=== PATIENT | female | born 2005 | race Caucasian/White ===

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

== ENCOUNTER 2024-02-01 15:14 | Outpatient (CLI) | payer OTHER, SELFPAY ==
[2024-02-01 15:53] LABS: Basophils % 0.7 % (0.1-2.0); Eosinophils # 0.1 K/mm3 (0.0-0.4); Eosinophils % 1.5 % (0.1-12.0); Hematocrit 33.1 % (37.0-47.0); Hemoglobin 10.4 g/dL (12.2-16.2); Lymphocytes # 1.9 K/mm3 (0.7-4.5); Lymphocytes % 40.5 % (10-50); Mean Corpuscular HGB Conc 31.3 g/dL (31.8-35.4); Mean Corpuscular Hemoglobin 26.7 pg (27.0-31.2); Mean Corpuscular Volume 85.3 fl (81-99); Mean Platelet Volume 9.6 fl (7.4-10.4); Monocytes # 0.3 K/mm3 (0.1-1.0); Monocytes % 5.2 % (1.7-9.3); Neutrophils # 2.5 K/mm3 (1.8-7.8); Neutrophils % 52.1 % (37.0-80.0); Platelet Count 280 K/mm3 (142-424); Red Blood Count 3.88 M/mm3 (4.20-5.40); Red Cell Distribution Width 15.9 % (11.5-17.5); White Blood Count 4.8 K/mm3 (4.5-13.0)
== END 2024-02-01 23:59 | disposition home or self-care (01) ==
LOC: LAB 15:14
PROVIDERS: PCP Internal Medicine; Visit Provider Obstetrics & Gynecology
DX: N92.0 Excessive and frequent menstruation with regular cycle (principal); N93.9 Abnormal uterine and vaginal bleeding, unspecified; Z98.891 History of uterine scar from previous surgery
CPT/HCPCS: 36415; 85025

== ENCOUNTER 2024-04-11 15:43 | Outpatient (CLI) | payer OTHER, SELFPAY | END 2024-04-11 23:59 | disposition home or self-care (01) | LOC: RT 15:44 | PROVIDERS: PCP Nurse Practitioner Family; Visit Provider Nurse Practitioner Family | DX: R07.9 Chest pain, unspecified (principal) | CPT/HCPCS: 93225; 93227 ==

== ENCOUNTER 2024-07-06 23:58 | Emergency (ER) | payer OTHER, SELFPAY ==
[2024-07-06 23:59] VITALS: BP 135/93; PULSE 103; RESP 18; TEMP 36.6; O2SAT 99; BMI 19.4
--- NOTE | 2024-07-07 00:20 | ECG_ITS ---
APPROVED REPORT Exam: Resting ECG HR:133 bpm ECG Measurements Heart Rate [address] 136 P 75 QRSd 77 QRS 90 QT 332 T 35 QTc 410 Conclusion SINUS TACHYCARDIA NONSPECIFIC T-WAVE ABNORMALITY ABNORMAL RHYTHM ECG UNCONFIRMED REPORT Electronically signed by : TELLY ROBERSON, 07/08/2024 06:38:02
[2024-07-07 00:24] LABS: Basophils # 0.1 K/mm3 (0-0.2); Eosinophils # 0.1 K/mm3 (0.0-0.4); Eosinophils % 1.9 % (0.1-12.0); Lymphocytes # 2.7 K/mm3 (0.7-4.5); Lymphocytes % 40.5 % (10-50); Mean Corpuscular HGB Conc 33.5 g/dL (31.8-35.4); Mean Corpuscular Hemoglobin 27.9 pg (27.0-31.2); Mean Corpuscular Volume 83.3 fl (81-99); Mean Platelet Volume 9.8 fl (7.4-10.4); Monocytes # 0.4 K/mm3 (0.1-1.0); Monocytes % 6.4 % (1.7-9.3); Neutrophils # 3.4 K/mm3 (1.8-7.8); Neutrophils % 50.1 % (37.0-80.0); Platelet Count 241 K/mm3 (142-424); Red Blood Count 4.68 M/mm3 (4.20-5.40); Red Cell Distribution Width 14.6 % (11.5-17.5); White Blood Count 6.7 K/mm3 (4.5-13.0)
[2024-07-07 00:32] VITALS: PULSE 105; O2SAT 99
[2024-07-07 00:37] LABS: Alanine Aminotransferase 58 U/L (12-78); Albumin Level 4.9 g/dl (3.5-5.0); Alkaline Phosphatase 87 U/L (38-126); Aspartate Amino Transferase 54 U/L (14-36); Bilirubin,Total 0.4 mg/dl (0.2-1.3); Blood Urea Nitrogen 16 mg/dl (7-17); Calcium 9.9 mg/dl (8.4-10.2); Carbon Dioxide 25 mmol/L (22.0-30.0); Chloride 108 mmol/L (98-107); Creatinine Clearance Estimated 110 mL/min (50-200); Estimated Glomerular Filt Rate 127 ml/min (>60); GFR (African American) 154 ML/MIN (>60); Globulin 2.4 g/dL (1.3-3.2); Glucose 70 mg/dl (74-100); Sodium 143 mmol/L (136-145); Total Protein,Serum 7.3 g/dl (6.3-8.2)
[2024-07-07 00:39] VITALS: PULSE 130
[2024-07-07 00:39] LABS: D-Dimer 0.25 ug/mL (0.0-0.5)
[2024-07-07 00:40] LABS: Troponin I < 0.01 ng/ml (0.00-0.034)
[2024-07-07 00:47] LABS: HCG,Quantitative < 2 mIU/ml (0-5.42)
[2024-07-07 01:03] LABS: HCG Qualitative, Serum Negative (Negative)
[2024-07-07] MEDS: LACTATED RINGERS 1000ML 1,000 ML 999 ML IV (01:06)
[2024-07-07 01:36] VITALS: BP 102/67; PULSE 103; RESP 17; TEMP 36.9; O2SAT 100
[2024-07-07 02:22] LABS: HIV (1&2) Antibody Rapid NONREACTIVE (NONREACTIVE)
--- NOTE | 2024-07-07 03:00 | [facility].EDCP ---
Discharge Plan Disposition Patient Disposition: Home, Self-Care Condition: Good Prescriptions Prescriptions: No Action medroxyprogesterone 150 mg/mL suspension 150 mg IM [id number] Qty: 1 3RF spinosad [Natroba] 0.9 % suspension 120 ml topical Q7D Qty: 120 0RF Referrals Follow up/Referrals: Andrey Fleming APRN [Primary Care Provider] - See instructions Pravin Fields MD [Staff Physician] - See instructions (arrhythmia, palpitations, cp) Activity Restrictions/Add. Instructions Additional Instructions/Restrictions: You were evaluated in the ER and are appropriate for discharge at this time. Drink plenty of water, aim for 100 ounces of water daily. Make an appointment with cardiology again to follow-up. I did refer you to our clinical education academic coordinator as well. Make an appointment with your primary care doctor for reevaluation in 2 to 3 days return to the ER with new, worsening, or otherwise concerning symptoms Clinical Impressions Clinical Impression: Palpitation, Chest pain Print Language Print Language: Romanian Discharge ED Provider: Erwin Marquez General Chief Complaint: Chest Pain Stated Complaint: Chest Pain Time Seen by Provider: 07/07/24 00:01 Mode of Arrival: Ambulatory Source of Information: Patient Limitations: No Limitations Description of Symptoms (Recalled from ER Triage Doc. by RN): Patient complains of chest pain since 07/05/24 at 6 pm. States it started in her left chest and arm and has now moved to the right arm. States chest pain is an ongoing issue for her. History of Present Illness HPI narrative: 19-year-old female presents to the ER for complaints of over 24 hours of chest pain radiating to her left chest and arm, now moving to the right side of the chest. Patient reports feeling her heart is going fast as well. She states she has previously had a case monitor but never followed up for the echo. She reports a few days ago she had a fever but has not had 1 in the last few days. She denies cough or congestion, no nausea vomiting or diarrhea, ROS otherwise negative. Related Data Previous Rx's ?Medication ?Instructions ?Recorded medroxyprogesterone 150 mg/mL 150 mg IM [id number] #1 mL 02/01/24 intramuscular suspension spinosad 0.9 % topical suspension 120 ml topical Q7D 2 doses #120 mL 05/06/24 (Natroba) Allergies Allergy/AdvReac Type Severity Reaction Status Date / Time No Known Allergies Allergy Verified 05/02/24 15:15 [facility] Disclaimer: The information contained in this section may have been updated after the patient was seen, as this information can be updated by other users. Medical History with 37 weeks completed gestation Vaginal discharge during , antepartum Constipation during , antepartum Abdominal pain during in first trimester Gastroesophageal reflux disease Migraine Nausea and vomiting Surgical History History of delivery Family History Other Asthma Cancer Diabetes Heart attack Hypertension No significant family history Stroke Social History Smoking Status: Current every day smoker tobacco type: e-cigarettes alcohol intake: never substance use type: denies use current occupational status: unemployed Travel in the last 8 weeks: None adopted: No caregiver/support person: No foster care: No household members: family housing: house lives independently: Yes marital status: single education level: high school service: No retirement: No current occupational exposures/hazards: No pets and animals: No sexually active: Yes how many partners: 1 are you practicing safe sex: Yes well-balanced diet: about half the time caffeine: Yes high-fat food intake: 2 times daily daily servings fruits/ve-1 daily servings of milk/calcium: 0-1 eating out: 1-3 times/week reads food labels: seldom or never during the past year weight has: increased > 10 lbs physical activity: walking frequency: 1-2 times per week duration: < 15 minutes/day special harry needs: No agree to transfusion: Yes helmet use: No drive intox or ride w/ intox petrol tanker driver: No water heater temp set < 120 deg: Yes working smoke detector in home: Yes fire extinguisher in home: Yes carbon monox detector in home: Yes firearms in home: No do you feel safe at home: Yes victim of physical abuse: No victim of emotional abuse: No victim of sexual abuse: No would you like helpful sources: No Other Medical History Have you received the Flu Vaccine for this season: No Have you received the Pneumonia Vaccine: No ROS Obtained: Yes All systems reviewed & no additional complaints except as documented Constitutional Constitutional: Denies chills, Denies fever(s), Denies headache(s) and Denies weakness Eyes Eyes: Denies change in vision ENT Ears, Nose, Mouth, and Throat: Reports dizziness (Described as lightheadedness intermittently), Denies headache(s), Denies nasal congestion and Denies sore throat Cardiovascular Cardiovascular: Reports chest pain, Denies dyspnea and Denies leg edema Respiratory Respiratory: Denies cough and Denies dyspnea Gastrointestinal Gastrointestingal: Denies constipation, diarrhea, nausea or vomiting Genitourinary Female Genitourinary: Denies dysuria Musculoskeletal Musculoskeletal: Denies arthralgias, Denies myalgias, Denies numbness and Denies tingling Integumentary/Breasts Skin/Breast: Denies change in pigmentation Neurologic Neurologic: Reports dizziness (Described as lightheadedness intermittently), Denies headache(s), Denies numbness, Denies tingling and Denies weakness Physical Exam General General appearance: alert and in no apparent distress Head Head exam: atraumatic and normocephalic Eye Eye exam: Present PERRL and EOMI ENT ENT exam: Present mucous membranes moist Neck Neck exam: Present normal inspection and full ROM Chest Chest inspection: Present symmetric chest wall rise; Absent tenderness Respiratory Respiratory exam: Present normal lung sounds bilaterally; Absent respiratory distress, wheezes or stridor Cardiovascular Cardiovascular exam: Present normal rhythm and tachycardia Abdominal Exam Abdominal exam: Present soft; Absent distention or tenderness Extremities Exam Extremities exam: Present full ROM; Absent edema Neurological Exam Neurological exam: Present alert and oriented X3; Absent motor sensory deficit Psychiatric Psychiatric exam: Present normal affect and normal mood Skin Skin exam: Present warm and dry HEART Score HEART Score HEART Score assessment performed?: Yes History (anamnesis): Slightly suspicious ECG: Non-specific disturbance Age: <45 years Risk factors: No known risk factors Troponin: </= normal limit HEART Score: 1 Critical Care Critical Care Time Critical Care Time: No Medical Decision Making Medical Records MR Comment: Records were reviewed. Patient has never seen cardiology in our system. Patient was seen by Andrey Fleming for an office visit with chest pain in April 2024. She describes symptoms similar to those she has today in the encounter. His note demonstrates a past Holter monitor within normal limits. Plan at that time was for a Holter, echo, cardiology referral. [place] Inquiry Pt receiving controlled substance: No Vital Signs Vital Signs: 07/06/24 23:59 07/07/24 00:32 07/07/24 00:39 Temperature 97.8 F Temperature Source Oral Pulse Rate 105 H 130 H Pulse Rate [Right Radial] 103 H Respiratory Rate 18 Blood Pressure Blood Pressure [Right Arm] 135/93 H Blood Pressure Mean [Right Arm] 107 Blood Pressure Source Blood Pressure Source [Right Arm] Automatic Cuff Blood Pressure Position 02 Sat by Pulse Oximetry 99 99 Oxygen Delivery Method Room Air 07/07/24 01:36 Temperature 98.4 F Temperature Source Oral Pulse Rate 103 H Pulse Rate [Right Radial] Respiratory Rate 17 Blood Pressure 102/67 L Blood Pressure [Right Arm] Blood Pressure Mean [Right Arm] Blood Pressure Source Automatic Cuff Blood Pressure Source [Right Arm] Blood Pressure Position Sitting 02 Sat by Pulse Oximetry Oxygen Delivery Method Room Air Lab Data Labs: Lab Results 07/07/24 00:08: WBC 6.7, RBC 4.68, Hgb 13.0, Hct 39.0, MCV 83.3, MCH 27.9, MCHC 33.5, RDW 14.6, Plt Count 241, MPV 9.8, Neut % (Auto) 50.1, Lymph % (Auto) 40.5, Coos % (Auto) 6.4, Eos % (Auto) 1.9, Baso % (Auto) 1.0, Neut # (Auto) 3.4, Lymph # (Auto) 2.7, Coos # (Auto) 0.4, Eos # (Auto) 0.1, Baso # (Auto) 0.1, D-Dimer 0.25, Sodium 143, Potassium 4.0, Chloride 108 H, Carbon Dioxide 25, Anion Gap 14.0, BUN 16, Creatinine 0.60, Estimated Creat Clear 110, Estimated GFR 127, Est GFR ( Amer) 154, Glucose 70 L, Calcium 9.9, Total Bilirubin 0.4, AST 54 H, ALT 58, Alkaline Phosphatase 87, Troponin I < 0.01, Total Protein 7.3, Albumin 4.9, Globulin 2.4, Albumin/Globulin Ratio 2.0 H, HCG, Quant < 2, HIV 1&2 Antibody Rapid Nonreactive 07/07/24 : Serum HCG, Qual Negative 07/07/24 00:08 07/07/24 00:08 Response Orders (Tests/Meds): ED MEDICATIONS Discontinued Medications Generic Name Dose Route Start Last Admin Trade Name Lukas PRN Reason Stop Dose Admin Lactated Ringer's 1,000 mls @ 999 mls/hr 07/07/24 00:54 07/07/24 01:06 Lactated Ringer's 1000 Ml Bag IV 07/07/24 01:54 999 mls/hr .Q1H1M ONE Administration ORDERS Category Date Time Status Complete Blood Count Auto Diff Stat Lab 07/07/24 00:08 Completed Comprehensive Metabolic Panel Stat Lab 07/07/24 00:08 Completed D-Dimer Stat Lab 07/07/24 00:08 Completed HCG Qualitative, Serum Stat Lab 07/07/24 Completed HCG,Quantitative Stat Lab 07/07/24 00:08 Completed HIV (1&2) Antibody Rapid Stat Lab 07/07/24 00:08 Completed Hep C Ab with Reflex to RNA Stat Lab 07/07/24 00:08 Received Troponin I Stat Lab 07/07/24 00:08 Completed 12-lead EKG Request [ECG Request] Stat Y 07/07/24 00:20 Ordered MDM Narrative Medical Decision Narrative: In summary, this 19-year-old female with no known chronic medical conditions presents to the emergency department today with palpitation, chest pain. On initial evaluation patient is tachycardic but otherwise hemodynamically stable, afebrile, symptoms have been going on for more than 24 hours, physical exam aside from tachycardia is overall benign. Differential diagnosis includes but is not limited to ACS, PE, electrolyte abnormality, arrhythmia, dehydration, anxiety, . Based on these concerns, I ordered serum labs, cardiac workup. ECG personally interpreted demonstrates sinus tachycardia, rate 133, normal axis, normal TX and QTc, no STEMI. Patient received IV fluids for treatment. On reassessment, her heart rate has significantly improved. She was no longer tachycardic, heart rate in the 90s Labs personally reviewed demonstrate no leukocytosis or anemia, CBC is normal, D-dimer negative at 0.25, no further PE workup indicated at this time, CMP nonactionable, initial troponin undetectably low at less than 0.01, given patient's duration of symptoms this is significantly reassuring and serial troponins are not indicated. test negative. Chest x-ray personally interpreted does not demonstrate any acute intrathoracic abnormality, see radiology read for final interpretation. On reassessment patient continues to be stable and all symptoms are resolved. She is resting comfortably. I referred her to cardiology for outpatient follow-up. Patient was given instructions on symptomatic management, follow up instructions, and return precautions for the emergency department. Patient indicated understanding and was discharged in stable condition.
[2024-07-09 05:10] LABS: HCV Ab Non Reactive (Non Reactive)
== END 2024-07-07 01:38 | disposition home or self-care (01) ==
PROVIDERS: Emergency Provider Emergency Medicine; PCP Nurse Practitioner Family
DX: R07.9 Chest pain, unspecified (principal); R00.2 Palpitations; M79.602 Pain in left arm; M79.601 Pain in right arm
CPT/HCPCS: 80053; 84484; 84702; 84703; 85025; 85378; 86803; 87389; 93005; 96360; 99283; J7120

== ENCOUNTER 2024-09-02 13:21 | Outpatient (CLI) | payer OTHER, SELFPAY ==
--- NOTE | 2024-09-02 | CA_ITS ---
APPROVED REPORT Exam: Exercise Treadmill Technologist: Rubina Harper Ht: 5 ft 2 in Wt: 104 lbs BSA: 1.45 m2 HR: 108 bpm BP: 133/74 mmHg Rhythm: NSR Stress Test Details HR Resting HR: 108 bpm Max Heart Rate (APMHR): 200 bpm Max HR Achieved: 179 bpm Target HR (85% APMHR): 170 bpm % of APMHR: 90 Recovery HR: 133 bpm HR response to stress: Normal HR response to stress BP Resting BP: 133.0/74.0 mmHg Max BP: 153.0/88.0 mmHg Recovery BP: 125.0/78.0 mmHg BP response to stress: Normal blood pressure response to stress. ECG Resting ECG: NSR Stress EC.[address] depression Arrhythmia: None Clinical Exercise duration: 7:00 min Highest Stage Achieved: III Exercise capacity: 8.9 METs Overall Exercise Capacity for Age: Average Stress ECG Conclusion Symptoms at peak stress: pleuritic chest pain, resolved within 3-5 minutes. Arrhythmias/Ectopy: occasional PVC ST-T Changes: 0.[address] depression CONCLUSION Fair exercise capacity. No ECG evidence of ischemia at peak stress. Electronically signed by : Whitley Fields MD 09/04/2024 11:10:34
--- NOTE | 2024-09-02 13:25 | CA_ITS ---
APPROVED REPORT EXAM: Comprehensive 2D, Doppler, and color-flow Echocardiogram Assembly Leader: Allie Humphreys RT(R) Ht: 5 ft 1 in Wt: 105lbs BSA: 1.44 BP: 102/78 mmHg Indications: SOA, CP 2D Dimensions Left Atrium 1.80 cm F: 2.7 - 3.8 LVEF (Reynaga's) 41.40 % F: 54 - 74 LVOT 1.88 cm (M/F) 1.5-2.5 LV Volume 82.20 mL F: 46 - 106 LV Volume Index 57.1 mL/m2 F: 29 - 61 EF AP4 46.40 % EF AP2 42.8 % EF BP 41.4 % GL Strain -17.3 % M-Mode Dimensions RVDd 1.66 cm (0.9-2.6) LVDd 3.84 cm (3.5-5.7) Ao Diam 2.48 cm (2.0-3.7) LVDs 2.90 cm (3.5-5.7) IVSd 0.48 cm (0.6-1.1) PWd 0.54 cm (0.6-1.1) EF (Teich) 49.30% FS 24.50% EDV (Teich) 63.50 mL ESV (Teich) 32.20 mL LV Diastology MED E' 11.6 (>= 7 cm/sec) LAT E' 18.3 (>= 10 cm/sec) Left Ventricle The left ventricle is normal size. The left ventricular systolic function is low normal. There is normal left ventricular wall thickness. There is normal LV segmental wall motion. The left ventricular diastolic function is normal. LVEF is 50%. Right Ventricle The right ventricle is normal size. The right ventricular systolic function is normal. Atria The left atrium size is normal. The right atrium size is normal. There is no Doppler evidence of interatrial shunt. Aortic Valve The aortic valve opens well. There is no aortic valvular stenosis. No aortic regurgitation is present. Mitral Valve The mitral valve is normal in structure. No evidence of mitral valve stenosis. Trace mitral regurgitation. Tricuspid Valve Tricuspid valve is grossly normal in structure and function. Trace tricuspid regurgitation. There is insufficient TR jet to estimate RVSP. Pulmonic Valve The pulmonary valve is normal in structure. Trace pulmonic regurgitation. Great Vessels The aortic root is normal in size. The ascending aorta is normal in size. IVC is normal in size and collapses >50% with inspiration. Pericardium There is no pericardial effusion. Other Information Study Quality: Fair Conclusion Low normal LV systolic function (LVEF 50%). No significant valvular stenosis or regurgitation. Electronically signed by : Whitley Fields MD 09/16/2024 18:58:26
== END 2024-09-02 23:59 | disposition home or self-care (01) ==
LOC: RT 13:22
PROVIDERS: PCP Nurse Practitioner Family; Visit Provider Physician Assistant
DX: R94.31 Abnormal electrocardiogram [ECG] [EKG] (principal); R07.89 Other chest pain; R00.0 Tachycardia, unspecified; R06.02 Shortness of breath
CPT/HCPCS: 93017; 93018; 93306

== ENCOUNTER 2024-09-06 11:39 | Emergency (ER) | payer OTHER, SELFPAY ==
[2024-09-06 11:50] VITALS: BP 0/0; PULSE 0; RESP 0; TEMP -17.7; TEMP 0
== END 2024-09-06 11:51 | disposition left against medical advice (07) ==
LOC: UTC 11:41
PROVIDERS: Emergency Provider Nurse Practitioner; PCP Nurse Practitioner Family
DX: Z53.21 Procedure and treatment not carried out due to patient leaving prior to being seen by health care provider (principal)

== ENCOUNTER 2024-10-05 02:52 | Emergency (ER) | payer OTHER, SELFPAY ==
[2024-10-05 02:54] VITALS: BP 119/80; PULSE 114; RESP 20; TEMP 36.7; O2SAT 100; BMI 19.8
--- NOTE | 2024-10-05 03:12 | HMH.EDGENADL ---
Discharge Plan Disposition Patient Disposition: Home, Self-Care Condition: Good Prescriptions Prescriptions: New amoxicillin-pot clavulanate 875-125 mg tablet 1 tab PO BID Qty: 20 0RF No Action medroxyprogesterone 150 mg/mL suspension 150 mg IM [id number] Qty: 1 3RF Referrals Follow up/Referrals: Andrey Fleming APRN [Primary Care Provider] - See instructions Activity Restrictions/Add. Instructions Additional Instructions/Restrictions: You were evaluated in the ER and are appropriate for discharge at this time. Take the prescribed antibiotics as directed, do not skip doses do not stop taking them early. Take Tylenol, ibuprofen if needed for pain but do not exceed the recommended dose on the bottle. Drink water and eat a small snack each time you take these medications. Use the provided dental balls, 1 hour on, 1 hour off. Do not eat or sleep with these in place. Follow-up with your dentist as scheduled this week. Return to the ER with new, worsening, or otherwise concerning symptoms. Clinical Impressions Clinical Impression: Dental caries, Pain, dental, Gingivitis, Sore throat Print Language Print Language: Swazi Discharge ED Provider: Erwin Marquez General Adult HPI General Chief complaint: Dental/Oral Stated complaint: pain L side mouth, throat Time Seen by Provider: 10/05/24 03:02 Mode of Arrival: Ambulatory Source of Information: Patient Limitations: No Limitations Description of Symptoms (Recalled from ER Triage Doc. by RN): pt reports left sided mouth pain that radiates into her left ear as well as a sore throat. pt reports she began expierencing this a couple of months ago and made a dentist appt for next week but the pain became unbearable at 11pm History of Present Illness HPI narrative: 19-year-old female presents to the ER complaining of dental pain radiating to her ear as well as sore throat. Patient states she has had had pain consistently for the last 3 weeks but it became worse at 11 PM. She states she has a dentist appointment coming up this week but her pain is unbearable. She states she took Tylenol and ibuprofen prior to arrival without significant relief of symptoms. She has no numbness, tingling, weakness, fevers, chest pain, difficulty breathing, difficulty swallowing, nausea, vomiting, diarrhea, or other associated symptoms. Related Data Previous Rx's ?Medication ?Instructions ?Recorded medroxyprogesterone 150 mg/mL 150 mg IM [id number] #1 mL 02/01/24 intramuscular suspension amoxicillin 875 mg-potassium 1 tab PO BID #20 tabs 10/05/24 clavulanate 125 mg tablet Allergies Allergy/AdvReac Type Severity Reaction Status Date / Time No Known Allergies Allergy Verified 08/20/24 15:36 [facility] Disclaimer: The information contained in this section may have been updated after the patient was seen, as this information can be updated by other users. Medical History with 37 weeks completed gestation Vaginal discharge during , antepartum Constipation during , antepartum Abdominal pain during in first trimester Gastroesophageal reflux disease Migraine Nausea and vomiting Surgical History History of delivery Family History Other Asthma Cancer Diabetes Heart attack Hypertension No significant family history Stroke Social History Smoking Status: Current every day smoker tobacco type: e-cigarettes alcohol intake: never substance use type: denies use current occupational status: unemployed Travel in the last 8 weeks: None adopted: No caregiver/support person: No foster care: No household members: family housing: house lives independently: Yes marital status: single education level: high school service: No mcfp: No current occupational exposures/hazards: No pets and animals: No sexually active: Yes how many partners: 1 are you practicing safe sex: Yes well-balanced diet: about half the time caffeine: Yes high-fat food intake: 2 times daily daily servings fruits/ve-1 daily servings of milk/calcium: 0-1 eating out: 1-3 times/week reads food labels: seldom or never during the past year weight has: increased > 10 lbs physical activity: walking frequency: 1-2 times per week duration: < 15 minutes/day special harry needs: No agree to transfusion: Yes helmet use: No drive intox or ride w/ intox clamp truck driver: No water heater temp set < 120 deg: Yes working smoke detector in home: Yes fire extinguisher in home: Yes carbon monox detector in home: Yes firearms in home: No do you feel safe at home: Yes victim of physical abuse: No victim of emotional abuse: No victim of sexual abuse: No would you like helpful sources: No Have you lived/traveled outside [place] in past 30 days?: No Contact w/someone who lives/traveled outside US past 30 days?: No Exposure to someone with infectious disease in past 14 days?: No Do you have a fever (greater than 100.4 F or 38 C)?: No Have you tested positive for COVID-19: No Exposed to someone with COVID-19 in past 14 days?: No Do you have a sore throat?: Yes Do you have a cough?: No Do you have any weakness?: No Do you have any diarrhea?: No Are you experiencing any unusual bleeding?: No Do you have any muscle aches/pain?: No Do you have any abdominal pain?: No Are you experiencing loss of taste or smell?: No Other Medical History Have you received the Flu Vaccine for this season: No Have you received the Pneumonia Vaccine: No ROS Obtained: Yes Systems reviewed as appropriate & no additional complaints except as documented Per HPI Physical Exam General General appearance: alert and in no apparent distress Head Head exam: atraumatic and normocephalic Eye Eye exam: Present PERRL and EOMI ENT ENT exam: Present mucous membranes moist and TM's normal bilaterally Expanded ENT Exam Mouth exam: Present tongue normal; Absent trismus, tongue elevation or tongue swelling Teeth exam: Present dental caries and dental tenderness # (Tenderness along tooth 19 and 20 with mild gingival swelling but no fluctuance or abscess appreciated) Comment: No swelling or woodiness of the floor of the mouth, no swelling of the sublingual or submandibular space Neck Neck exam: Present normal inspection and full ROM; Absent lymphadenopathy Chest Chest inspection: Present symmetric chest wall rise Respiratory Respiratory exam: Present normal lung sounds bilaterally; Absent respiratory distress, wheezes or stridor Cardiovascular Cardiovascular exam: Present normal rhythm and tachycardia Abdominal Exam Abdominal exam: Present soft; Absent distention or tenderness Extremities Exam Extremities exam: Present full ROM Neurological Exam Neurological exam: Present alert and oriented X3; Absent motor sensory deficit Psychiatric Psychiatric exam: Present normal affect and normal mood Skin Skin exam: Present warm and dry Medical Decision Making Medical Records Medical records reviewed: Yes I reviewed the patient's medical records. Screening: Per USPSTF and CDC recommendations, given the prevalence of disease in our region, it is our hospital?s policy to screen for HIV and viral Hepatitis for all patients aged 18 and over and those with ongoing risk factors. MR Comment: I reviewed patient's medical records. She has presented previously with chest pain, she has a known baseline abnormal EKG and is consistently tachycardic. She was seen in cardiology clinic on 08/20/2024 for ER follow-up. Her heart rate at that time was 104. She had persistent tachycardia on echo as well. Rosendo Inquiry Pt receiving controlled substance: No Vital Signs: 10/05/24 02:54 Temperature 98.0 F Temperature Source Oral Pulse Rate [Right] 114 H Respiratory Rate 20 Blood Pressure [Right Arm] 119/80 Blood Pressure Mean [Right Arm] 93 02 Sat by Pulse Oximetry 100 Oxygen Delivery Method Room Air Orders (Tests/Meds): ED MEDICATIONS Discontinued Medications Generic Name Dose Route Start Last Admin Trade Name Freq PRN Reason Stop Dose Admin Amoxicillin/Clavulanate Potassium 1 each 10/05/24 03:07 Amoxicillin/Clavulanate Potassium 875/125mg Tablet PO 10/05/24 03:08 ONCE ONE Benzocaine/Butamben/Tetracaine HCl 1 gm 10/05/24 03:07 Tetracaine/Benzocaine/Butamben 56 Gm Lolita TP 10/05/24 03:08 ONCE ONE Lidocaine HCl 15 ml 10/05/24 03:07 Lidocaine 2% Viscous Swapna 15ml Udc PO 10/05/24 03:08 ONCE ONE Medical Decision Narrative: In summary, this 19-year-old female presents to the emergency department today with left dental pain, ear pain, sore throat. On initial evaluation patient is mildly tachycardic, heart rate 100-105 during my exam, tenderness along the gingiva of teeth 19 and 20, dental caries present, mild gingival erythema and slight swelling but no fluctuance or abscess identified, floor of the mouth does not demonstrate any woodiness, no sublingual or submandibular swelling or tenderness, no lymphadenopathy, tympanic membranes normal. Differential diagnosis includes but is not limited to dental pain, dental caries, dental infection, dental abscess, I considered Enrrique's angina but have no evidence of this on exam, also considered otitis media but have no evidence of this on exam. Additionally I had considered strep since patient states she has had a sore throat, but she will be treated with Augmentin which will cover for strep so I am not going to test her. I did consider RPA or ASSISTANT FOOD SERVICE DIRECTOR but patient has normal-appearing structures in the back of her throat aside from very slight erythema. Given patient's reassuring findings on exam, she will be treated with Augmentin for infection control as well as dental balls for pain control since she has already taken Tylenol and ibuprofen. Dental balls were provided to the patient, Augmentin was prescribed. She already has follow-up scheduled with the dentist this coming week which I believe is most important. She does not require any labs or imaging at this time and is appropriate for discharge. Patient was given instructions on symptomatic management, follow up instructions, and return precautions for the emergency department. Patient indicated understanding and was discharged in stable condition. Critical Care Critical Care Time Critical Care Time: No
[2024-10-05] MEDS: LIDOCAINE 2% VISCOUS SOL 15ML UDC 15 ML PO (03:14)
[2024-10-05] MEDS: TETRACAINE/BENZOCAINE/BUTAMBEN 56 GM SPRAY TP (03:14)
[2024-10-05] MEDS: AMOXICILLIN/CLAVULANATE POTASSIUM 875/125MG TABLET 1 EACH PO (03:15)
[2024-10-05 03:19] VITALS: BP 118/80; PULSE 114; RESP 20; TEMP 36.7; O2SAT 100
== END 2024-10-05 03:20 | disposition home or self-care (01) ==
PROVIDERS: Emergency Provider Emergency Medicine; PCP Nurse Practitioner Family
DX: K05.10 Chronic gingivitis, plaque induced (principal); K02.9 Dental caries, unspecified; K08.89 Other specified disorders of teeth and supporting structures; J02.9 Acute pharyngitis, unspecified; Z72.0 Tobacco use
CPT/HCPCS: 99283

== ENCOUNTER 2025-02-09 16:00 | Outpatient (CLI) | payer OTHER, SELFPAY ==
[2025-02-09 19:53] LABS: Coronavirus 19, PCR Not Detected (NotDetected); Influenza A, PCR Not Detected (NotDetected); Influenza B, PCR Not Detected (NotDetected); Respiratory Syncytial Virus Not Detected (NotDetected)
[2025-02-09 22:24] LABS: Human Rhinovirus Detected (NotDetected)
== END 2025-02-09 23:59 | disposition home or self-care (01) ==
LOC: LAB.DROPOF 02-11 11:16
PROVIDERS: PCP Student in an Organized Health Care Education/Training Program; Visit Provider Student in an Organized Health Care Education/Training Program
DX: J02.9 Acute pharyngitis, unspecified (principal); R05.9 Cough, unspecified
CPT/HCPCS: 87631

== ENCOUNTER 2025-04-07 02:54 | Emergency (ER) | payer OTHER, SELFPAY ==
--- NOTE | 2025-04-07 02:52 | ECG_ITS ---
APPROVED REPORT Exam: Resting ECG HR:90 bpm ECG Measurements Heart Rate 90 AXES CO 142 P 47 QRSd 83 QRS 79 QT 339 T 33 QTc 386 Conclusion SINUS RHYTHM WITH SINUS ARRHYTHMIA NONSPECIFIC T-WAVE ABNORMALITY BORDERLINE ECG UNCONFIRMED REPORT Electronically signed by : TELLY ROBERSON, 04/08/2025 03:48:51
--- NOTE | 2025-04-07 02:52 | XR_ITS ---
PROCEDURE INFORMATION: Exam: XR Chest Exam date and time: 04/07/2025 3:52 AM Age: 20 years old Clinical indication: Sternal or substernal pain; Additional info: Cp TECHNIQUE: Imaging protocol: Radiologic exam of the chest. Views: 1 view. COMPARISON: CR XR CHEST 2V 12/12/2022 12:45 AM FINDINGS: Lungs: Unremarkable. No consolidation. Pleural spaces: Unremarkable. No pleural effusion. No pneumothorax. Heart/Mediastinum: Unremarkable. No cardiomegaly. Bones/joints: Unremarkable. IMPRESSION: No acute findings.
[2025-04-07 02:53] VITALS: BP 129/89; PULSE 93; RESP 18; TEMP 36.9; O2SAT 100; BMI 19.2
--- NOTE | 2025-04-07 02:56 | ED_ITS ---
Discharge Plan Disposition Patient Disposition: Home, Self-Care Prescriptions Prescriptions: No Action medroxyprogesterone 150 mg/mL suspension 150 mg IM [id number] Qty: 1 3RF [id number] [Bromfed DM] 2-30-10 mg/5 mL syrup 5 ml PO Q4-6H PRN (Reason: cold symptoms) Qty: 118 0RF Activity Restrictions/Add. Instructions Additional Instructions/Restrictions: Please follow-up with your primary care provider. Please return to the emergency department if you develop any new or worsening symptoms or become concerned for your health. Clinical Impressions Clinical Impression: Chest pain Print Language Print Language: Persian Discharge ED Provider: Christian Guerra General Adult HPI General Chief complaint: Chest Pain Stated complaint: Chest Pain Time Seen by Provider: 04/07/25 02:56 History of Present Illness HPI narrative: 20-year-old female without significant past medical history presents for chest pain rating to the left arm. She reports that it started a couple hours ago. Sharp. Denies shortness of breath. No history of clots, no control. No recent fever or infection Related Data Previous Rx's ?Medication ?Instructions ?Recorded medroxyprogesterone 150 mg/mL 150 mg IM [id number] #1 mL 02/01/24 intramuscular suspension [id number]-[id number] 5 ml PO Q4-6H PRN c old symptoms 02/09/25 2 mg-30 mg-10 mg/5 mL oral syrup #118 mL (Bromfed DM) Allergies Allergy/AdvReac Type Severity Reaction Status Date / Time No Known Allergies Allergy Verified 02/09/25 16:27 [facility] Disclaimer: The information contained in this section may have been updated after the patient was seen, as this information can be updated by other users. Medical History with 37 weeks completed gestation Vaginal discharge during , antepartum Constipation during , antepartum Abdominal pain during in first trimester Gastroesophageal reflux disease Migraine Nausea and vomiting Surgical History History of delivery Family History Other Asthma Cancer Diabetes Heart attack Hypertension No significant family history Stroke Social History Smoking Status: Current every day smoker tobacco type: e-cigarettes alcohol intake: never substance use type: denies use current occupational status: unemployed Travel in the last 8 weeks?: None adopted: No caregiver/support person: No foster care: No household members: family housing: house lives independently: Yes marital status: single education level: high school service: No prison: No current occupational exposures/hazards: No pets and animals: No sexually active: Yes how many partners: 1 are you practicing safe sex: Yes well-balanced diet: about half the time caffeine: Yes high-fat food intake: 2 times daily daily servings fruits/ve-1 daily servings of milk/calcium: 0-1 eating out: 1-3 times/week reads food labels: seldom or never during the past year weight has: increased > 10 lbs physical activity: walking frequency: 1-2 times per week duration: < 15 minutes/day special harry needs: No agree to transfusion: Yes helmet use: No drive intox or ride w/ intox driver service technician: No water heater temp set < 120 deg: Yes working smoke detector in home: Yes fire extinguisher in home: Yes carbon monox detector in home: Yes firearms in home: No do you feel safe at home: Yes victim of physical abuse: No victim of emotional abuse: No victim of sexual abuse: No would you like helpful sources: No Other Medical History Have you received the Flu Vaccine for this season: No Have you received the Pneumonia Vaccine: No ROS Obtained: Yes All systems reviewed & no additional complaints except as documented Physical Exam General General appearance: alert and in no apparent distress Head Head exam: atraumatic and normocephalic Eye Eye exam: Present normal appearance, PERRL and EOMI ENT ENT exam: Present normal oropharynx and normal external ear exam Neck Neck exam: Present normal inspection and full ROM Chest Chest inspection: Present normal inspection and symmetric chest wall rise; Absent tenderness Respiratory Respiratory exam: Present normal lung sounds bilaterally; Absent respiratory distress Cardiovascular Cardiovascular exam: Present regular rate and normal rhythm Abdominal Exam Abdominal exam: Present soft; Absent distention, tenderness or guarding Extremities Exam Extremities exam: Present normal inspection; Absent edema or joint swelling Back Exam Back exam: Present normal inspection; Absent tenderness Neurological Exam Neurological exam: Present alert and oriented X3; Absent motor sensory deficit Psychiatric Psychiatric exam: Present normal affect and normal mood Skin Skin exam: Present warm, dry and normal color Lymphatic Lymphatic Findings: no adenopathy Medical Decision Making Medical Records Medical records reviewed: Yes I reviewed the patient's medical records. Screening: Per USPSTF and CDC recommendations, given the prevalence of disease in our region, it is our hospital?s policy to screen for HIV and viral Hepatitis for all patients aged 18 and over and those with ongoing risk factors. Rosendo Inquiry Pt receiving controlled substance: No Rosendo was queried for this patient: No Vital Signs: 04/07/25 02:53 Temperature 98.5 F Temperature Source Oral Pulse Rate [Left Radial] 93 H Respiratory Rate 18 Blood Pressure [Right Arm] 129/89 Blood Pressure Mean [Right Arm] 102 Blood Pressure Source [Right Arm] Automatic Cuff Blood Pressure Position [Right Arm] Sitting 02 Sat by Pulse Oximetry 100 Oxygen Delivery Method Room Air Lab Data Lab results reviewed: Yes I reviewed the patient's lab results. Lab Results 04/07/25 02:37: WBC 7.9, RBC 4.68, Hgb 13.4, Hct 41.2, MCV 88.0, MCH 28.6, MCHC 32.5, RDW 13.3, Plt Count 263, MPV 11.7 H, Neut % (Auto) 50.1, Lymph % (Auto) 39.2, [place] % (Auto) 9.2, Eos % (Auto) 1.1, Baso % (Auto) 0.3, Neut # (Auto) 4.0, Lymph # (Auto) 3.1, [place] # (Auto) 0.7, Eos # (Auto) 0.1, Baso # (Auto) 0.0, Sodium 139, Potassium 3.3 L, Chloride 103, Carbon Dioxide 27, Anion Gap 12.3, BUN 11, Creatinine 0.60, Estimated Creat Clear 112, Estimated GFR 126, Est GFR ( Amer) 153, Glucose 119 H, Calcium 10.1, Total Bilirubin 0.4, AST 34, ALT 28, Alkaline Phosphatase 127 H, Troponin I < 0.01, Total Protein 8.1, Albumin 5.0, Globulin 3.1, Albumin/Globulin Ratio 1.6, Serum HCG, Qual Negative 04/07/25 02:37 04/07/25 02:37 Orders (Tests/Meds): ED MEDICATIONS Discontinued Medications Generic Name Dose Route Start Last Admin Trade Name Lukas PRN Reason Stop Dose Admin Acetaminophen 1,000 mg 04/07/25 03:04 04/07/25 03:10 Acetaminophen 500mg Tab PO 04/07/25 03:05 1,000 mg ONCE ONE Administration Belladonna Alkaloids 60 ml 04/07/25 03:04 04/07/25 03:09 Belladonna Alkaloids 60 Ml Ml PO 04/07/25 03:05 60 ml ONCE ONE Administration ORDERS Category Date Time Status CXR --portable [XR chest portable] Stat Exams 04/07/25 02:52 Taken CBC w/Auto Diff [Complete Blood Count Auto Diff] Stat Lab 04/07/25 02:37 Completed CMP [Comprehensive Metabolic Panel] Stat Lab 04/07/25 02:37 Completed HCG Qualitative, Serum Stat Lab 04/07/25 02:37 Completed Troponin I Q3H Lab 04/07/25 02:37 Completed Troponin I Q3H Lab 04/07/25 06:00 Ordered ECG Data Tracing #1: I reviewed this ECG and interpreted as documented below: ECG initial impression date: 04/07/25 ECG initial impression time: 02:51 ECG normal with no acute: arrhythmias, ischemia, conduction abnormalities, chamber hypertrophy HEART Score History (anamnesis): Slightly suspicious ECG: Normal Age: <45 years Risk factors: No known risk factors Troponin: </= normal limit HEART Score: 0 Medical Decision Narrative: 20-year-old female without significant past medical history presents for 2 hours of left-sided chest pain radiated to the left arm. History was obtained via interactive discussion with patient, EMS. On arrival, patient is [afebrile, hemodynamically stable, satting appropriately, alert, oriented x4, GCS 15], moving all extremities spontaneously. Full physical exam performed and significant for no significant physical exam abnormalities Differential includes but is not limited to musculoskeletal chest pain, GERD, ACS, PE Patient was given Tylenol, GI cocktail for symptomatic management and correction of underlying abnormalities. Workup initiated including CBC CMP troponin EKG chest x-ray. Patient is PERC negative and does not require D-dimer. On re-evaluation, patient [remains afebrile, HD stable.] Laboratory workup independently interpreted by me and significant for no significant electrolyte derangement, normal renal function, negative initial troponin.. Imaging independently interpreted by me and significant for clear lungs bilateral without focal opacity. See radiology read for full review of final results. EKG independently interpreted by me and significant for normal sinus rhythm. Repeat troponin was considered, but deemed unnecessary due to no significant concern for ACS. Given patient history, exam and workup, patient's presentation most likely represents noncardiac chest pain. Patient was discharged in stable condition with return precautions. Procedures Risk/Benefits of Procedure(s) Were Explained: Yes Critical Care Critical Care Time Critical Care Time: No
[2025-04-07 03:00] VITALS: BP 124/82; PULSE 91; O2SAT 98
[2025-04-07 03:03] LABS: Hematocrit 41.2 % (37.0-47.0); Hemoglobin 13.4 g/dL (12.2-16.2); Immature Granulocytes % 0.1 %; Mean Corpuscular HGB Conc 32.5 g/dL (31.8-35.4); Mean Corpuscular Hemoglobin 28.6 pg (27.0-31.2); Mean Corpuscular Volume 88.0 fl (81-99); Nucleated Red Blood Cells % 0 %; Platelet Count 263 K/mm3 (142-424); Red Blood Count 4.68 M/mm3 (4.20-5.40); Red Cell Distribution Width-SD 43.2 fL; White Blood Count 7.9 K/mm3 (4.8-10.8)
[2025-04-07] MEDS: BELLADONNA ALKALOIDS 60 ML ML PO (03:09)
[2025-04-07] MEDS: ACETAMINOPHEN 500MG TAB 1000 MG PO (03:10)
--- OUTSIDE RECORDS SUMMARY | 2025-04-07 03:13 | XMS_ITS | Encounter Summary ---
Author Organization Healthcare Address [address] [place] [address] Care Team Providers Care Small Parts Assembler Name Role Phone Marc Mcintosh MD Primary Care Provider [phone] Encounter Details Date Type Department Care Team (Late st Contact Info) Description 11/25/2024 Community Orders [facility] [address] [place] [address] Momo Sneed, DMD [address] [place] [address] Social History Tobacco Use Types Packs/Day Years Used Date Smoking Tobacco: Never Assessed Comments Unknown Sex and Gender Information Value Date Recorded Sex Assigned at Not on file Legal Sex Female 7:01 PM EDT Gender Identity Not on file Sexual Orientation Not on file documented as of this encounter Plan of Treatment Not on file documented as of this encounter Visit Diagnoses Not on filedocumented in this encounter Care Teams Small Parts Assembler Relationship Specialty Start Date End Date Marc Mcintosh MD [address] [place] [address] PCP - General 01/22/21 documented as of this encounter
--- OUTSIDE RECORDS SUMMARY | 2025-04-07 03:13 | XMS_ITS | Clinical Summary ---
Author Organization [facility] Address [address] [place] [address] Care Team Providers Care Nutrition Assistant Name Role Phone Marc Mcintosh MD Primary Care Provider [phone] Social History Tobacco Use Types Packs/Day Years Used Date Smoking Tobacco: Never Assessed Comments Unknown Sex and Gender Information Value Date Recorded Sex Assigned at Not on file Legal Sex Female 7:01 PM EDT Gender Identity Not on file Sexual Orientation Not on file Plan of Treatment Not on file Care Teams Nutrition Assistant Relationship Specialty Start Date End Date Marc Mcintosh MD [address] [place] [address] PCP - General 01/22/21
--- OUTSIDE RECORDS SUMMARY | 2025-04-07 03:13 | XMS_ITS | Clinical Summary ---
[facility] [address] [place] [address] Care Team Providers Care Guest Relations Receptionist Name Role Phone Provider, No Known Primary Care Provider Unavail able Allergies No known active allergies Medications FeroSul 325 (65 Fe) MG tablet Daily. 05/19/2022 Activ e Pediatric Multivit-Minera ls-C (FLINTSTONES GUMMIES PO) Take 2 tablets by mouth Daily. Active Active Problems Problem Noted Date Diagnosed Date Poor growth affecting management of mother in third trimester 06/29/2022 Social History Tobacco Use Types Packs/Day Years Used Date Smoking Tobacco: Never Tobacco Cessation:Counseling Given: Not Answered Alcohol Use Standard Drinks/Week Comments Never 0 (1 standard drink = 0.6 oz pur e alcohol) Abuse Screen Answer Date Recorded Unsafe at Home or Work/School Not on file Feels Threatened by Someone? Not on file Does Anyone Keep You from Co ntacting Others or Doint Things Outside the Home? Not on file 06/23/2023 Physical Sign of Abuse Present Not on file 1 Housing Stability Answer Date Recorded Current Living Arrangements Not on file 06/11 Potentially Unsafe Housing Conditions Not on sue e 06/23/2023 Family and Community Support Answer Bhavesh e Recorded Help with Day-to-Day Activities Not on file 06/23/2023 Lonely or Isolated Not on file 06/23/2023 Employment Answer Date Recorded Do you want help finding or keeping work or a lise b? Not on file 06/23/2023 Disabilities Answer Date Recorded Concentrating, Remembering, or Making Decisions Difficulty Not on file 06/23/2023 Doing Errands Independently Difficulty Not on fi le 06/23/2023 Education Answer Date Recorded Help with school or training? Not on file Preferred Language Not on file 06/23/2023 Comments No Sex and Gender Information Value Date Recorded Sex Assigned at Not on file Legal Sex Female 12:31 PM EDT Gender Identity Not on file Sexual Orientation Not on file Last Filed Vital Signs Vital Sign Reading Time Taken Comments Blood Pressure 127/84 06/29/2022 2:32 PM EDT Pulse - - Temperature - - Respiratory Rate - - Oxygen Saturation - - Inhaled Oxygen Concentration - - Weight 51.3 kg (113 lb) 06/29/2022 2:32 PM EDT Height 153.7 cm (5' 0.5 ) 06/29/2022 2:35 PM EDT Body Mass Index 21.71 06/29/2022 2:32 PM EDT Plan of Treatment Health Maintenance Due Date Last Done Comments Annual Gynecologic Pelvic and Breast Exam 2004 MENINGOCOCCAL B VACCINE (1 of 2 - Standard) 2020 ANNUAL PHYSICAL 06/07/2022 HEPATITIS C SCREENING 06/07/2022 COVID-19 Vaccine ( - season) 2024 TDAP/TD VACCINES (2 - Td or Tdap) 04/08/2025 04/08/2015 INFLUENZA VACCINE 06/11/2025 Pneumococcal Vaccine 0-49 Aged Out 2004, 2004, 2004, Additional history exists No longer eligible based on patient's age to complete this topic HPV VACCINES Completed 05/05/2017, 04/08/2015 MENINGOCOCCAL VACCINE Completed 03/12/2020, [address] [place] [address] [facility] Care Teams Guest Relations Receptionist Relationship Specialty Start Date End Date [place], [place] [address] PCP - General 06/07/22
[2025-04-07 03:16] LABS: Albumin Level 5.0 g/dl (3.5-5.0); Chloride 103 mmol/L (98-107); Potassium 3.3 mmoL/L (3.5-5.1); Sodium 139 mmol/L (136-145)
[2025-04-07 03:19] LABS: Alanine Aminotransferase 28 U/L (12-78); Albumin/Globulin Ratio 1.6 (1.1-1.8); Alkaline Phosphatase 127 U/L (38-126); Anion Gap 12.3 mEq/L (5-15); Aspartate Amino Transferase 34 U/L (14-36); Bilirubin,Total 0.4 mg/dl (0.2-1.3); Calcium 10.1 mg/dl (8.4-10.2); Carbon Dioxide 27 mmol/L (22.0-30.0); Globulin 3.1 g/dL (1.3-3.2); Glucose 119 mg/dl (74-100); Total Protein,Serum 8.1 g/dl (6.3-8.2)
[2025-04-07 03:24] LABS: Blood Urea Nitrogen 11 mg/dl (7-17); Creatinine Clearance Estimated 112 mL/min (50-200); Creatinine,Serum 0.60 mg/dl (0.52-1.04); Estimated Glomerular Filt Rate 126 ml/min (>60); GFR (African American) 153 ML/MIN (>60)
[2025-04-07 03:30] VITALS: BP 119/73; PULSE 79; RESP 12; O2SAT 98
[2025-04-07 03:46] LABS: Troponin I < 0.01 ng/ml (0.00-0.034)
[2025-04-07 03:48] LABS: HCG Qualitative, Serum Negative (Negative)
[2025-04-07 04:07] VITALS: BP 118/78; PULSE 92; RESP 18; TEMP 36.9; O2SAT 100
== END 2025-04-07 04:09 | disposition home or self-care (01) ==
LOC: ER 03:12
PROVIDERS: Emergency Provider Emergency Medicine
DX: R07.89 Other chest pain (principal)
CPT/HCPCS: 71045; 80053; 84484; 84703; 85025; 93005; 99285